=== PATIENT | male | born 1950 | race Caucasian/White ===

== ENCOUNTER 2016-12-27 15:03 | Emergency (ER) | payer OTHER, MEDICAID ==
[2016-12-27 15:11] VITALS: O2SAT 96
[2016-12-27 16:21] VITALS: BP 122/80; PULSE 92; RESP 16
--- NOTE | 2016-12-27 16:23 | EDPHY ---
H & P Time Seen by Provider: 12/27/16 16:15 HPI/ROS: CHIEF COMPLAINT: Right lateral fibular laceration HISTORY OF PRESENT ILLNESS: 66-year-old male with up-to-date tetanus in town to run the [employer] accidentally rubbed his right lateral calf up against his tail pipe and sustained a laceration. Occurred earlier today. He is able to bear weight. No foreign body sensation. [place] PH[place]ICAL EXAM (Prior to examination, patient consented to physical exam, hands were washed and my usual and customary physical exam procedures followed) 1) GENERAL: Well-developed, well-nourished, alert and oriented. Appears to be in no acute distress. 2) HEAD: Normocephalic 3) HEENT: sclera anicteric 4) LUNGS: Breathing comfortably. 5) SKIN: right lateral calf/right mid fibular region 6 cm well-demarcated laceration involving adipose tissue only, no muscle laceration 6) MUSCULOSKELETAL: dorsiflexion plantar flexion supination pronation intact distally with no deficits. Brisk pulses and capillary refill distally with full sensation Smoking Status: Never smoked Constitutional: Initial Vital Signs Temperature (C) 36.5 C 12/27/16 15:07 Heart Rate 90 12/27/16 15:07 Respiratory Rate 18 12/27/16 15:07 Blood Pressure 120/80 12/27/16 15:07 O2 Sat (%) 96 12/27/16 15:07 O2 Delivery Mode Room Air Allergies/Adverse Reactions: Penicillins Allergy (Intermediate, Verified 12/27/16 15:11) Hives Home Medications: Medication Instructions Recorded Cephalexin [Keflex] 500 mg PO TID 5 Days 12/27/16 Cholesterol Med 12/27/16 ED Images - Extremities Legs Front/Back: 1 - Laceration MDM/Departure - MDM Procedures: Procedure: Laceration repair. I explained the indications, risks and benefits for both laceration repair and anesthetic administration. Verbal consent was obtained from the patient . The laceration on the right lateral calf was anesthetized using 0.5% bupivicaine with epinephrine . After anesthetic administered the patient was observed for a period of time and had no apparent adverse effects. The wound was cleaned, prepped, draped in normal sterile fashion and explored to its base. No foreign body seen, no foreign bodies palpated. Lower no muscle components or laceration to the muscle fascia visualized. The wound was repaired with 12 simple interrupted 3 0 Prolene suture . The wound repair was complex. The procedure was performed by myself. Patient has been informed that scarring will occur, although efforts have been made to minimize this. - Depart Disposition: Home, Routine, Self-Care Clinical Impression: Laceration of right lower extremity Qualifiers: Encounter type: initial encounter Qualified Code(s): S81.811A - Laceration without foreign body, right lower leg, initial encounter Condition: Good Instructions: Care For Your Stitches (ED), Laceration (ED) Additional Instructions: Return to the ER if you develop redness, swelling, discharge, warmth to the wound, red streaks going up your leg, or any other symptoms that concern you. Prescriptions: Cephalexin [Keflex] 500 mg PO TID 5 Days Referrals: Follow-up, with your primary care provider in 14 days [Other] - As per Instructions
[2016-12-27] MEDS ORDERED: CEPHALEXIN 500 MG CAP PO ONE (16:43)
[2016-12-27 16:51] VITALS: TEMP 97.5
== END 2016-12-27 17:02 | disposition home or self-care (01) ==
PROC: 0HQKXZZ Repair Right Lower Leg Skin, External Approach (ICD-10-PCS; principal; 2016-12-27)
DX: S81.811A Laceration without foreign body, right lower leg, initial encounter (principal); X58.XXXA Exposure to other specified factors, initial encounter; Y99.8 Other external cause status; Y93.02 Activity, running